=== PATIENT | male | born 1995 | race Two or more races ===

== ENCOUNTER 2017-11-27 22:10 | Emergency (ER) | payer OTHER ==
[2017-11-27] MEDS ORDERED: Lidocaine 2% EPI 1:200000 MPF* 20 ML VIAL ONE (22:46)
[2017-11-27] MEDS ORDERED: oxyCODONE/Acetamin 5/325 MG* TAB PO ONE (23:26)
[2017-11-27] MEDS ORDERED: Cephalexin CAP* 500 MG PO ONE (23:35)
[2017-11-28 00:24] VITALS: BP 127/61
--- NOTE | 2017-11-30 19:30 | ED ---
Cyn Mancia Abhishek, scribed for Satnana Jenkins MD on 11/27/17 at 2250 . Laceration/Wound HPI - HPI Summary HPI Summary: This patient is a 22 year old M presenting to [facility] accompanied by police officers with a chief complaint of laceration since one hour ago. Pt does not know when the last tetanus shot was. Allergies reported and reviewed. The patient rates the pain 0/10 in severity. Symptoms aggravated by nothing. Symptoms alleviated by nothing. According to the triage note, the right hand laceration approximately 4 inches, right hand pinky laceration approximately 1 inch as well as abrasion to right forehead and left posterior shoulder. Unknown last tetanus. Pt states unknown object that last cut him. - History of Current Complaint Stated Complaint: RT HAND LAC Hx Obtained From: Patient Mechanism of Injury: Other - Pt claims it was an object Onset/Duration: Sudden Onset, Lasting Hours - 1 hour, Still Present Onset Severity: Severe Current Severity: Severe Pain Intensity: 10 Pain Scale Used: 0-10 Numeric Associated Signs & Symptoms: Erthema, Redness - Allergy/Home Medications Allergies/Adverse Reactions: Allergies Allergy/AdvReac Type Severity Reaction Status Date / Time No Known Allergies Allergy Verified 11/27/17 22:38 PMH/Surg Hx/FS Hx/Imm Hx Previously Healthy: No - Pt is noncompliant and a poor historian - Immunization History Date of Tetanus Vaccine: unk Date of Influenza Vaccine: none Infectious Disease History: No Infectious Disease History: Denies: Traveled Outside the [place] in Last 30 Days - Family History Known Family History: Positive: Unknown Family History: Pt is a poor historian - Social History Occupation: Unemployed - "prisoner" Alcohol Use: None Substance Use Type: Reports: None Smoking Status (MU): Never Smoked Tobacco Review of Systems Constitutional: Negative Eyes: Negative ENT: Negative Cardiovascular: Negative Respiratory: Negative Gastrointestinal: Negative Genitourinary: Negative Musculoskeletal: Negative Skin: Other - Laceration to the right hand and the 5th finger Neurological: Negative Psychological: Normal All Other Systems Reviewed And Are Negative: Yes Physical Exam Triage Information Reviewed: Yes Vital Signs On Initial Exam: Initial Vitals Temp Pulse Resp BP Pulse Ox 99.5 F 108 16 136/78 99 11/27/17 22:13 11/27/17 22:13 11/27/17 22:13 11/27/17 22:13 11/27/17 22:13 Vital Signs Reviewed: Yes Procedures - Laceration/Wound Repair 1 Location: Other - Right hand Anesthesia: Local Suture Type: Nylon - 3 O ethilon. Suture with good hemostasis 2 Location: Other - Fifth right finger Anesthesia: Local Suture Type: Nylon - 4 O ethilon. Suture with good hemostasis Diagnostics - Vital Signs Vital Signs Temp Pulse Resp BP Pulse Ox 11/27/17 22:13 99.5 F 108 16 136/78 99 - Laboratory Lab Results: Lab Results 11/27/17 Range/Units 22:50 HIV 1&2 Antibody Nonreactive (Nonreactive) Lab Statement: Any lab studies that have been ordered have been reviewed, and results considered in the medical decision making process. Laceration Repair Course/Dx - Course Course Of Treatment: The pt is a 22 y/o M with a chief complaint of laceration. [facility] two police officers from a correctional facility. Upon evaluation the pt required a sulture and packing for his wound. Two lacerations are present; one on the right hand and the other on the 5th finger. Pt is currently bleeding from wound site. The mechanism of injury is unknown to the pt. The pt will be discharged to the correctional facility. The dx will be laceration to the right dorsal surface of the palm and right pinky, neurovascularly intact. - Clinical Impression Provider Diagnoses: Lac to R dorsal surface of palm, Laceration to right pinky, Neurovascuarly in tact Discharge - Discharge Plan Condition: Stable Disposition: OTHER Discharge Disposition Comment: returned to detention Prescriptions: Cephalexin CAP* [Keflex CAP*] 500 mg PO TID #15 cap Referrals: [facility], [Primary Care Provider] - Additional Instructions: remove stitches 5 days. po antibiotics for 5 days as well The documentation as recorded by the Cyn byers Abhishek accurately reflects the service I personally performed and the decisions made by me, Santana Jenkins MD.
== END 2017-11-28 00:23 ==
LOC: ED 22:10
DX: S61.216A Laceration without foreign body of right little finger without damage to nail, initial encounter (principal); S61.411A Laceration without foreign body of right hand, initial encounter; X58.XXXA Exposure to other specified factors, initial encounter; Y92.9 Unspecified place or not applicable
CPT/HCPCS: 12002; 36415; 86703; 99283; A9270-GY